=== PATIENT | male | born 1945 | race Caucasian/White ===

== ENCOUNTER 2018-02-11 05:47 | Inpatient (IN) ==
[2018-02-11] MEDS ORDERED: Chlorhexidine Gluconate 2% 1 Pack (2 Cloths) TOPICAL SCH (06:30)
[2018-02-11] MEDS ORDERED: Metoprolol Tartrate 25 MG Tablet PO SCH (06:30)
[2018-02-11] MEDS ORDERED: Ketamine Inj 50 MG/5 ML Syringe IV.PUSH ONE (06:31)
[2018-02-11] MEDS ORDERED: [UNRECOGNIZED DRUG - REMARK] OTHER SCH (07:00)
[2018-02-11] MEDS ORDERED: Sodium Chlor 0.9% Inj 500 ML IV.SIG SCH (07:00)
[2018-02-11] MEDS ORDERED: Lidocaine 1%/Epinephrine 1:100,000 Inj 50 ML Vial ONE (07:09)
[2018-02-11 07:24] LABS: INR 1.1 Ratio; Prothrombin Time 10.7 sec (9.8-11.6)
[2018-02-11] MEDS ORDERED: ceFAZolin 2 GM Premix Inj 2 GM/100 ML BAG IV.SIG ONE (07:25)
[2018-02-11] MEDS ORDERED: Clindamycin Inj 900 MG/6 ML Vial ONE (07:37)
[2018-02-11] MEDS ORDERED: Albumin Human 5% Inj 500 ML IV.SIG ONE (07:52)
[2018-02-11] MEDS ORDERED: Albumin Human 5% Inj 250 ML IV.SIG ONE ×2 (10:03→12:50)
[2018-02-11 10:47] LABS: ABG Base Excess -3.7 mmol/L (-2-2); ABG PCO2 37 mmHg (38-42); ABG PO2 97 mmHG (61-120)
[2018-02-11] MEDS ORDERED: Sugammadex Inj 200 MG/2 ML Vial IV.PUSH ONE (11:51)
[2018-02-11] MEDS ORDERED: Lidocaine PF 1% Inj 5 ML Syringe INFILTRATN ONE (12:00)
[2018-02-11] MEDS ORDERED: Phenylephrine/NS 1000 MCG/10ML Syringe IV.PUSH ONE (12:00)
[2018-02-11] MEDS ORDERED: fentaNYL Citrate Inj 100 MCG/2 ML Ampul ONE ×2 (13:43→13:44)
[2018-02-11 14:00] LABS: Baso % (Auto) 0.1 % (0.0-2.0); Eos % (Auto) 0.1 % (0.0-4.0); Hematocrit 30.3 % (39.0-51.0); Hemoglobin 10.5 gm/dL (13.0-17.0); Lymph # (Auto) 0.7 th/mm3 (1.0-4.8); Lymph % (Auto) 5.7 % (9.0-44.0); Mean Corpuscular HGB Conc 34.5 % (32.0-36.0); Mean Corpuscular Hemoglobin 33.3 pg (27.0-34.0); Mean Corpuscular Volume 96.3 fL (80.0-100.0); Mono # (Auto) 0.3 th/mm3 (0.0-0.9); Mono % (Auto) 2.5 % (0.0-8.0); Neut % (Auto) 91.6 % (16.0-70.0); Platelet Count 105 th/mm3 (150-450); Red Blood Count 3.15 mil/mm3 (4.50-5.90); Red Cell Distribution Width 15.4 % (11.6-17.2)
[2018-02-11] MEDS: Sod Chloride 0.9% Inj 1,000 ML IV.SIG SCH (14:00)
[2018-02-11] MEDS: Pantoprazole Inj 40 MG Vial IV.PUSH SCH (14:09)
[2018-02-11 14:21] LABS: Calcium 7.1 mg/dL (8.5-10.1); Carbon Dioxide 21.3 meq/L (21.0-32.0); Potassium 3.6 meq/L (3.5-5.1)
[2018-02-11 14:35] LABS: Total Protein 5.7 g/dL (6.4-8.2)
[2018-02-11] MEDS ORDERED: *morphine SULFATE 4 MG/ML PERIprocedure ONLY ONE (15:18)
[2018-02-11] MEDS: Clindamycin 900 mg/NS Premix 900 MG/50 ML PIGGYBACK IV.SIG SCH (16:31)
[2018-02-11] MEDS: Morphine Inj 4 MG/ML Vial IV.PUSH PRN (18:41)
--- NOTE | 2018-02-11 19:31 | ECG ---
Date Performed: 02/11/2018 Time Performed: 06:24:50 PTAGE: 72 years EKG: Sinus rhythm Right bundle branch block Inferior T wave changes are nonspecific Abnormal ECG NO PREVIOUS TRACING DOCTOR: Jordi Barger Interpretating Date/Time 02/11/2018 19:29:07
[2018-02-11] MEDS: Docusate Sodium 100 MG Capsule PO SCH (20:40)
[2018-02-11] MEDS: amLODIPine 5 MG Tablet PO SCH (20:40)
[2018-02-12] MEDS: Morphine Inj 4 MG/ML Vial IV.PUSH PRN ×2 (00:27→12:05)
[2018-02-12] MEDS: Clindamycin 900 mg/NS Premix 900 MG/50 ML PIGGYBACK IV.SIG SCH ×2 (03:40→08:36)
[2018-02-12] MEDS: Docusate Sodium 100 MG Capsule PO SCH ×2 (08:36→23:09)
[2018-02-12 09:04] LABS: Mean Corpuscular HGB Conc 33.5 % (32.0-36.0); Mean Corpuscular Hemoglobin 32.8 pg (27.0-34.0); Mean Platelet Volume 10.1 fL (7.0-11.0); Platelet Count 94 th/mm3 (150-450); Red Blood Count 3.06 mil/mm3 (4.50-5.90); Red Cell Distribution Width 16.4 % (11.6-17.2); White Blood Count 12.9 th/mm3 (4.0-11.0)
[2018-02-12 09:49] LABS: Calcium 8.1 mg/dL (8.5-10.1); Carbon Dioxide 24.4 meq/L (21.0-32.0); Potassium 4.4 meq/L (3.5-5.1)
[2018-02-12] MEDS: Sod Chloride 0.9% Inj 1,000 ML IV.SIG SCH (11:00)
--- NOTE | 2018-02-12 13:44 | P.PNURO ---
Subjective Patient symptoms today: Pt is s/p RRP yesterday. Was seen this afternoon. Admits no pain, just abd post/ op soreness. no f/c/n/v, labs are stable. JENIFER output 30cc. JENIFER Cr is pending Nascimento drains light pink urine. He tolerates diet well, no BM or flatus yet. Ambulated w/out issues, just felt a little nauseous. Otherwise is doing well Objective Vital Signs: Vital Signs 02/11/18 13:45 02/11/18 14:00 02/11/18 14:15 Temperature Pulse Rate 97 H 94 H 101 H Respiratory Rate 20 16 18 Blood Pressure 117/76 121/59 L 123/59 L Pulse Oximetry 100 98 100 02/11/18 14:30 02/11/18 14:45 02/11/18 15:00 Temperature 97.1 F L Pulse Rate 99 H 100 H 100 H Respiratory Rate 15 14 15 Blood Pressure 97/56 L 102/55 L 104/56 L Pulse Oximetry 100 100 100 02/11/18 17:28 02/11/18 20:00 02/12/18 00:00 Temperature 97.3 F L 98.2 F 98.1 F Pulse Rate 107 H 110 H 109 H Respiratory Rate 18 17 18 Blood Pressure 113/62 105/62 127/66 Pulse Oximetry 97 93 L 94 L 02/12/18 04:00 02/12/18 08:00 Temperature 97.6 F 98.2 F Pulse Rate 105 H 103 H Respiratory Rate 17 16 Blood Pressure 102/60 110/63 Pulse Oximetry 93 L 90 L Intake & Output 02/11/18 02/12/18 02/12/18 18:59 06:59 18:59 Intake Total 3420 / 3420 2550 / 2550 150 / 150 Output Total 1969 / 1969 2280 / 2280 Balance 1450 / 1450 270 / 270 150 / 150 Weight 96.1 kg Intake: IV 3150 / 3150 1250 / 1250 150 / 150 Ofirmev Inj 1,000 mg In 100 ml 100 / 100 200 / 200 100 / 100 @ 400 mls/hr IV.SIG Q6H ROCHELLE Rx# :[id number] Cleocin 900 mg/NS Premix 900 mg 50 / 50 50 / 50 50 / 50 In 50 ml @ 100 mls/hr IV.SIG Q8H ROCEHLLE Rx#:[id number] LR 1000 mL Inj 1,000 ML @ 30 3000 / 3000 mls/hr IV.SIG .Q24H ROCHELLE Rx#: [id number] NS Inj 1,000 ML @ 100 mls/hr IV 1000 / 1000 .SIG .Q10H ROCHELLE Rx#:[id number] Oral 120 / 120 1300 / 1300 Anesthesia Amount 150 / 150 Output: Urine 200 / 200 2000 / 2000 Estimated Blood Loss 1300 / 1300 Urine Amount (Catheter) 400 / 400 Indwelling Urethral Catheter 400 / 400 Wound Drainage 70 / 70 280 / 280 Left Lateral Abdomen 70 / 70 280 / 280 Other: # Bowel Movements 0 Result Diagrams: 02/12/18 06:31 08 06:31 Medications and IVs: Active Medications Generic Name Dose Route Start Last Admin Trade Name Freq PRN Reason Stop Dose Admin Amlodipine Besylate 5 mg 02/11/18 21:00 02/11/18 20:40 Norvasc PO 5 mg HS ROCHELLE Administration Chlorhexidine Gluconate 3 pack 02/11/18 06:30 02/11/18 07:09 Chlorhexidine 2% Cloth TOPICAL 02/14/18 06:27 3 pack ROTARY FILTER OPERATOR ROCHELLE Administration Docusate Sodium 100 mg 02/11/18 21:00 02/12/18 08:36 Colace PO 100 mg BID ROCHELLE Administration Lactated Ringer's 1,000 mls @ 30 mls/hr 02/11/18 06:30 02/12/18 07:30 Lr 1000 Ml Inj IV.SIG 02/14/18 06:27 Not Given .Q24H ROCHELLE Sodium Chloride 500 mls @ 30 mls/hr 02/11/18 07:00 Ns Inj IV.SIG 02/14/18 06:27 .Q10H ROCHELLE Sodium Chloride 1,000 mls @ 100 mls/hr 02/11/18 14:00 02/12/18 11:00 Ns Inj IV.SIG 150 mls/hr .Q10H ROCHELLE Administration Acetaminophen 1,000 mg in 100 mls @ 400 mls/hr 02/11/18 14:00 02/12/18 10:43 Ofirmev Inj IV.SIG Infused Q6H ROCHELLE Infusion Losartan Potassium 50 mg 02/12/18 09:00 02/12/18 08:36 Cozaar PO 50 mg DAILY ROCHELLE Administration Metoprolol Tartrate 25 mg 02/11/18 06:30 02/11/18 07:09 Lopressor PO 02/14/18 06:27 Not Given ROTARY FILTER OPERATOR [facility] Morphine Sulfate 4 mg 02/11/18 12:59 02/12/18 12:05 Morphine Inj IV.PUSH 4 mg Q4H PRN Administration BREAKTHROUGH PAIN Ondansetron HCl 4 mg 02/11/18 12:59 Zofran Inj IV.PUSH Q6H PRN NAUSEA OR VOMITING Oxycodone HCl 10 mg 02/11/18 13:45 02/12/18 10:59 Roxicodone PO 10 mg Q4H PRN Administration PAIN SCALE 5-10/SEVERE COUGH Pantoprazole Sodium 40 mg 02/11/18 14:00 02/11/18 14:09 Protonix Inj IV.PUSH 40 mg Q24H ROCHELLE Administration Povidone Iodine 1 applicatio 02/11/18 06:30 02/11/18 07:09 Betadine 5% Antisepsis Kit EACH NARE 02/14/18 06:27 1 applicatio ROTARY FILTER OPERATOR ROCHELLE Administration Pravastatin Sodium 10 mg 02/12/18 09:00 02/12/18 08:36 Pravachol PO 10 mg DAILY ROCHELLE Administration Objective Remarks: NAD RRR Clear lungs Abd soft NT. Incisions c/d/i Nascimento is in place as well as JENIFER drain Assessment and Plan - Plan POD #1 s/p RRP Continue current management Monitor labs Monitor I&O of drains Continue current diet Ambulate 2-3times a day at least Pain management prn Possibly advance diet tomorrow Possibly d/c tomorrow Discussed Condition With: Dr Alejandrina DILLARD attending
--- NOTE | 2018-02-12 15:38 | P.DCO ---
- Home Health Nursing Order: Nascimento catheter maintenance - Certification I have seen patient Brian Marroquin on 02/12/18. My clinical findings support the need for the requested home health care services because: Deconditioned with increased weakness I certify that my clinical findings support that this patient is homebound because: Post-op weakness
[2018-02-12] MEDS: Pantoprazole Inj 40 MG Vial IV.PUSH SCH (15:41)
[2018-02-12] MEDS: Ketorolac Inj 30 MG/ML (IVP) Vial IV.PUSH SCH ×2 (17:50→23:17)
[2018-02-12] MEDS: amLODIPine 5 MG Tablet PO SCH (23:09)
[2018-02-13] MEDS: Ketorolac Inj 30 MG/ML (IVP) Vial IV.PUSH SCH (07:15)
[2018-02-13] MEDS: Sod Chloride 0.9% Inj 1,000 ML IV.SIG SCH (07:57)
[2018-02-13] MEDS: Docusate Sodium 100 MG Capsule PO SCH (08:01)
[2018-02-13 08:25] VITALS: O2SAT 92
[2018-02-13 10:23] LABS: Baso % (Auto) 0.2 % (0.0-2.0); Eos # (Auto) 0.1 th/mm3 (0.0-0.4); Eos % (Auto) 1.3 % (0.0-4.0); Hematocrit 31.7 % (39.0-51.0); Hemoglobin 10.8 gm/dL (13.0-17.0); Lymph # (Auto) 2.4 th/mm3 (1.0-4.8); Lymph % (Auto) 23.8 % (9.0-44.0); Mean Corpuscular HGB Conc 34.2 % (32.0-36.0); Mean Corpuscular Hemoglobin 33.2 pg (27.0-34.0); Mean Corpuscular Volume 97.1 fL (80.0-100.0); Mean Platelet Volume 10.6 fL (7.0-11.0); Mono # (Auto) 0.5 th/mm3 (0.0-0.9); Mono % (Auto) 4.9 % (0.0-8.0); Neut # (Auto) 7.1 th/mm3 (1.8-7.7); Neut % (Auto) 69.8 % (16.0-70.0); Platelet Count 103 th/mm3 (150-450); Red Blood Count 3.26 mil/mm3 (4.50-5.90); Red Cell Distribution Width 15.8 % (11.6-17.2); White Blood Count 10.1 th/mm3 (4.0-11.0)
[2018-02-13 10:58] LABS: Calcium 8.5 mg/dL (8.5-10.1); Carbon Dioxide 26.7 meq/L (21.0-32.0); Potassium 3.8 meq/L (3.5-5.1)
--- NOTE | 2018-02-13 11:10 | P.PNURO ---
Subjective Patient symptoms today: Pt is doing well. no f/c/n/v, Labs are stable. JENIFER Cr is ok, no urine leak is suspected. Tolerates regular diet well. No BM yet. + flatus Ambulating without issues. Pain is controlled, its more soreness ant the site of incision. Objective Vital Signs: Vital Signs 02/12/18 12:00 02/12/18 16:00 02/12/18 20:00 Temperature 97.8 F 97.9 F 97.8 F Pulse Rate 95 H 95 H 98 H Respiratory Rate 18 19 19 Blood Pressure 114/58 L 131/63 142/65 H Pulse Oximetry 90 L 90 L 93 L 02/12/18 23:00 02/13/18 00:00 02/13/18 08:00 Temperature 98.3 F 99.0 F Pulse Rate 80 95 H Respiratory Rate 19 19 17 Blood Pressure 125/71 170/78 H Pulse Oximetry 95 92 L Intake & Output 02/12/18 02/13/18 02/13/18 18:59 06:59 18:59 Intake Total 950 / 950 1000 / 1000 Output Total 1200 / 1200 2000 / 2000 1200 / 1200 Balance -250 / -250 -2000 / -2000 -200 / -200 Weight 96.4 kg Intake: IV 150 / 150 1000 / 1000 Ofirmev Inj 1,000 mg In 100 ml 100 / 100 @ 400 mls/hr IV.SIG Q6H ROCHELLE Rx# :[id number] Cleocin 900 mg/NS Premix 900 mg 50 / 50 In 50 ml @ 100 mls/hr IV.SIG Q8H ROCHELLE Rx#:[id number] NS Inj 1,000 ML @ 100 mls/hr IV 1000 / 1000 .SIG .Q10H ROCHELLE Rx#:[id number] Oral 800 / 800 Output: Urine 1000 / 1000 1999 / 2000 1200 / 1200 Wound Drainage 200 / 200 Left Lateral Abdomen 200 / 200 Other: # Bowel Movements 0 Result Diagrams: 02/13/18 07:52 02/13/18 07:52 Medications and IVs: Active Medications Generic Name Dose Route Start Last Admin Trade Name Freq PRN Reason Stop Dose Admin Amlodipine Besylate 5 mg 02/11/18 21:00 02/12/18 23:09 Norvasc PO 5 mg HS ROHCELLE Administration Chlorhexidine Gluconate 3 pack 02/11/18 06:30 02/11/18 07:09 Chlorhexidine 2% Cloth TOPICAL 02/14/18 06:27 3 pack NEEDLE POLISHER ROCHELLE Administration Docusate Sodium 100 mg 02/11/18 21:00 02/13/18 08:01 Colace PO 100 mg BID ROCHELLE Administration Lactated Ringer's 1,000 mls @ 30 mls/hr 02/11/18 06:30 02/13/18 07:49 Lr 1000 Ml Inj IV.SIG 02/14/18 06:27 Not Given .Q24H ROCHELLE Sodium Chloride 500 mls @ 30 mls/hr 02/11/18 07:00 Ns Inj IV.SIG 02/14/18 06:27 .Q10H ROCHELLE Losartan Potassium 50 mg 02/12/18 09:00 02/13/18 08:01 Cozaar PO 50 mg DAILY ROCHELLE Administration Metoprolol Tartrate 25 mg 02/11/18 06:30 02/11/18 07:09 Lopressor PO 02/14/18 06:27 Not Given NEEDLE POLISHER [facility] Morphine Sulfate 4 mg 02/11/18 12:59 02/12/18 12:05 Morphine Inj IV.PUSH 4 mg Q4H PRN Administration BREAKTHROUGH PAIN Ondansetron HCl 4 mg 02/11/18 12:59 Zofran Inj IV.PUSH Q6H PRN NAUSEA OR VOMITING Oxycodone/Acetaminophen 2 tab 02/12/18 15:34 02/12/18 23:09 Percocet 5/325 Mg PO 2 tab Q6H PRN Administration PAIN SCALE 7 TO 10 SEVERE Oxycodone/Acetaminophen 1 tab 02/12/18 15:35 Percocet 5/325 Mg PO Q6H PRN PAIN SCALE 4 TO 6 MODERATE Pantoprazole Sodium 40 mg 02/11/18 14:00 02/12/18 15:41 Protonix Inj IV.PUSH 40 mg Q24H ROCHELLE Administration Povidone Iodine 1 applicatio 02/11/18 06:30 02/11/18 07:09 Betadine 5% Antisepsis Kit EACH NARE 02/14/18 06:27 1 applicatio NEEDLE POLISHER RCOHELLE Administration Pravastatin Sodium 10 mg 02/12/18 09:00 02/13/18 08:01 Pravachol PO 10 mg DAILY ROCHELLE Administration Objective Remarks: NAD RRR Clear lungs Abd soft NT. Incisions c/d/i Gill is in place, Urine is clear JENIFER is in place Assessment and Plan - Plan POD #2 s/p RRP Continue current management Labs are ok Gill drains well clear urine, Keep gill in JENIFER removal prior to d/c Continue current regular diet Ambulate 2-3times a day at least Pain management prn D/c criteria met, we will d/c pt home Discussed Condition With: Dr Tinoco and bedside nurse
[2018-02-13 12:13] VITALS: BP 147/76; PULSE 97; RESP 19; TEMP 99.6
--- NOTE | 2018-02-13 15:02 | MP ---
cc: Viktor Tinoco MD DATE OF OPERATION: 02/11/2018 PREOPERATIVE DIAGNOSIS: Юлия 3+4=7 prostate cancer. POSTOPERATIVE DIAGNOSIS: [place] 3+4=7 prostate cancer. PROCEDURE: Robotic-assisted laparoscopic radical prostatectomy with pelvic lymph node dissection. SURGEON: Viktor Tinoco MD. OIL WELL DIRECTIONAL SURVEYOR: Иван. ANESTHESIA: General. COMPLICATIONS: None. PREOPERATIVE ANTIBIOTICS: Clindamycin 900 mg IV. DRAINS: 1. A 20-Greenlandic Nascimento catheter to gravity drainage. 2. JENIFER drain to bulb suction. ESTIMATED BLOOD LOSS: 1300 mL. FLUIDS: 3 liters of crystalloids, 750 of albumin, 2 units of packed red blood cells. SPECIMENS: 1. Prostate and seminal vesicles. 2. Right pelvic lymph nodes. DISPOSITION: Stable to recovery. INDICATIONS/SIGNIFICANT HISTORY: The patient is a 72-year-old male with history of elevated PSA. The patient underwent transrectal ultrasound with prostate biopsy and was found to have [place] 3+4=7 disease in 5/12 cores. Metastatic workup was negative. Treatment options were discussed and he elected to proceed with robotic prostatectomy. The patient had a preoperative prostate MRI, which did show several suspicious lesions in his right apex, but did not show any evidence of extraprostatic extension or lymph node involvement. The patient was scheduled for a robotic-assisted laparoscopic radical prostatectomy with pelvic lymph node dissection. After risks, benefits, and alternatives were explained to the patient, including the risk of erectile dysfunction, urinary incontinence, the patient agreed to proceed. Informed consent was obtained. DETAILS OF PROCEDURE: The patient was properly identified and brought back to the operating room and laid supine on the operating table. Proper timeout was performed under direction of anesthesiology. The patient was then induced under general anesthetic. Clindamycin 900 mg IV were given within 1 hour of start of procedure. The patient was then placed in dorsal lithotomy position in steep Trendelenburg. All pressure points were padded. He was then prepped and draped in normal sterile surgical fashion. A 16-Greenlandic Nascimento catheter was then placed under sterile technique. Clear yellow urine returned. At this time, a stab incision was made superior and to the right of the umbilicus. A Veress needle was then used to gain access to the abdominal cavity. Insufflation was then achieved. The incision was then extended to approximately 2 cm. A 12 mm long camera port was then placed carefully into the abdominal cavity. The abdominal cavity was then carefully and slowly insufflated. Using a 10 mm laparoscope, I then inserted it into the abdominal cavity. There was no evidence of any anterior abdominal injury including bleeding. There was no evidence of any anterior abdominal wall adhesions. The remaining 5 ports were then placed under direct visualization, including two 8 mm robotic ports placed on the left side approximately a handbreadth apart. A 5 mm drug safety assistant port triangulated above the camera port, a 12 mm drug safety assistant port in the right lateral side, 2 fingerbreadths north of the ASIS, and then a third 8 mm robotic port divided in between the camera port and the 12 mm drug safety assistant port. Again, all ports were placed under direct visualization. At this time, we then began by taking down the bladder to enter the space of Retzius. At this point, the periprostatic fat was then carefully removed. He had an extensive amount of fat around his prostate and his endopelvic fascia. All of this was carefully removed. There was some mild bleeding that was controlled with electrocautery. Once the periprostatic fat had been removed, I then entered the endopelvic fascia on each side to dissect the pelvic musculature off the prostate towards the apex of the prostate heading towards the dorsal vein complex. Both puboprostatic ligaments were taken on each side. At this time, I then used a 2-0 looped Stratafix to ligate the DVC. At this point, I turned my attention to the bladder neck and then dissected the anterior bladder neck down until the Nascimento catheter was visible. The Nascimento catheter was then retracted. We exposed the posterior portion of the bladder neck. There was no evidence in the median lobe. Both the orifices were identified and were quite a distance from the bladder neck dissection. I then came through the posterior portion of the bladder neck and through Denonvilliers fascia until the seminal vesicles were encountered. At this point, I carefully dissected out the vas deferens and seminal vessels on each side. I divided the vas deferens on each side to use as retraction. I then used my third arm to retract the prostate anteriorly towards the pubic symphysis. Once each seminal vesicle was dissected out, I then peeled the posterior Denonvilliers fascia off the posterior side of the rectum all the way towards the apex. This dissection was quite difficult. Since it appeared that the majority of the disease was on the right, I did nerve spare on the left. The pedicle was taken with a robotic vessel sealer. On the right side, I did not nerve spare due to the presence of his disease. The pedicles were taken with the robotic vessel all the way towards the apex of the prostate. At this point, I then approached the anterior portion of the prostate and using electrocautery divided the DVC to come to the urethra. At this point, I did get into some bleeding, which was controlled with bipolar electrocautery. At this point, the urethra was then divided along with the rectourethralis muscle. At this point, the prostate was completely mobilized. It was then placed in the right pericolic gutter for later removal. The rectum was carefully inspected. There was no evidence of any rectal injury. The left neurovascular bundle appeared to be intact. There was some minimal bleeding, which was then controlled. Due to him having [place] 7 disease, I then performed a standard lymph node dissection. I began on the right side. The right iliac vein was identified. Then I was able to remove the tissue towards the pelvic sidewall where I found the obturator nerve. A Hem-o-Kitty clip was then used to clip across the lymph node packet. I then peeled off the lymph nodes from the obturator nerve. The obturator nerve remained intact. These were then removed and sent off to the pathologist. I attempted to do a dissection on the left side of the left pelvic lymph nodes; but, during the dissection, I encountered a large circumflex vein coming off of the iliac and did cause some significant bleeding. However, this was controlled with Hem-o-kitty clips. Both iliac vein and artery remained intact. Due to the significant bleeding, I did not finish the lymph node dissection on the left side. Some tissue was collected and this was sent off in the lymph node packet. At this point, I performed a watertight vesicourethral anastomosis using a double armed 4-0 Stratafix stitch, which was run in a running fashion. The catheter was seen directly visualized into the bladder itself. It was then secured with 30 mL of normal saline. It was irrigated. No evidence of urine leak was seen. Three grams of Vesna was then placed in the pelvis for hemostatic purposes. The prostate was then placed in an Endo Catch bag for later removal. A JENIFER drain was placed through the third arm port. The pressure was then brought down to 7 mmHg. There was no evidence of any bleeding. At this point, the prostate was then extracted through the camera port after extending the incision. It was closed with interrupted 0 Vicryl sutures. All remaining ports were removed under direct visualization. They were closed with 4-0 Monocryl sutures and Dermabond. Of note, a 20-Greenlandic Nascimento catheter was used at the end of the case. Again, it was irrigated just fine and light pink. This concluded the procedure. The patient was extubated and sent to recovery room in stable condition. He will be transferred to the floor for routine postoperative care. Viktor Tinoco MD EMF/ts , 01:53 PM , 02:08 PM
[2018-02-13] MEDS: Pantoprazole Inj 40 MG Vial IV.PUSH SCH (15:29)
== END 2018-02-13 15:59 | disposition home health service (06) ==
LOC: HSDC 05:47 → EDSTATUS 07:30 → HSDI 12:56 → N07 16:09
PROVIDERS: ADMIT Urology; ATTEND Urology